=== PATIENT | male | born 1975 | race Caucasian/White ===

== ENCOUNTER 2017-02-05 15:34 | Emergency (ER) | payer BC, OTHER ==
[2017-02-05] MEDS ORDERED: Sodium Chloride 0.9% 10 ML Syringe FLUSH PRN (16:29)
[2017-02-05 17:15] LABS: CHLORIDE,CL 101 mmol/L (101-111); SODIUM,NA 138 mmol/L (135-145)
[2017-02-05] MEDS ORDERED: Vancomycin 1.5 GM in Sodium Chloride 0.9% 500 ML IV ONE (18:10)
[2017-02-05] MEDS ORDERED: Dexamethasone 4 MG/ML SDV IVPUSH ONE (18:11)
--- NOTE | 2017-02-05 19:04 | EDM.PDOC ---
Scribed by Juanita Felix 02/05/17 7202 for Elroy Mattson MD ED HPI GENERAL MEDICAL PROBLEM - General Chief Complaint: Upper Extremity Injury/Pain Stated Complaint: [id number] SWOLLEN ELBOW/ARM Time Seen by Provider: 02/05/17 16:29 Source of Information: Reports: Patient, RN, RN Notes Reviewed History Limitations: Reports: No Limitations - History of Present Illness INITIAL COMMENTS - FREE TEXT/NARRATIVE: Complaining of right elbow bursitis that developed over the last week while patient was on vacation riding with his right elbow on the console of his car. A few days ago it began to became red and painful. Denies fever or chills. History of septic bursitis of right elbow x2 in the past. Location: Reports: Upper Extremity, Right Quality: Reports: Ache Severity: Moderate Improves with: Reports: None Worsens with: Reports: None Associated Symptoms: Reports: No Other Symptoms Right Elbow Pain Score (Numeric/FACES): 7 - Related Data Allergies Allergy/AdvReac Type Severity Reaction Status Date / Time Penicillins Allergy Intermediate Rash Verified 02/05/17 16:12 Home Meds: Home Meds Cephalexin 250 mg PO QID 02/05/17 [History] Ibuprofen 1 tab PO ASDIRECTED PRN 02/05/17 [History] Past Medical History Musculoskeletal History: Reports: Other (See Below) (Septic bursitis of right elbow.) Review of Systems - Review of Systems Review Of Systems: ROS reveals no pertinent complaints other than HPI. ED EXAM, GENERAL - Physical Exam Exam: See Below Exam Limited By: No Limitations General Appearance: Alert, WD/WN, No Apparent Distress Head: Atraumatic, Normocephalic Respiratory/Chest: No Respiratory Distress, Lungs Clear, Normal Breath Sounds, No Accessory Muscle Use, Chest Non-Tender Cardiovascular: Normal Peripheral Pulses, Regular Rate, Rhythm, No Edema, No Gallop, No JVD, No Murmur, No Rub Back Exam: Normal Inspection, Full Range of Motion, NT Extremities: Other (Right elbow with acutely tender and swollen olecranon bursa with erythema and increased warmth. Full ROM, but tender.) Neurological: Alert, Oriented, CN II-XII Intact, Normal Cognition, Normal Gait, Normal Reflexes, No Motor/Sensory Deficits Psychiatric: Normal Affect, Normal Mood Lymphatic: No Adenopathy Course - Vital Signs Last Recorded V/S: Last Vital Signs Temp 38.0 C 02/05/17 15:52 Pulse 85 02/05/17 15:52 Resp 18 02/05/17 15:52 BP 99/67 02/05/17 15:52 Pulse Ox 96 02/05/17 15:52 - Orders/Labs/Meds Orders: Active Orders 24 hr Category Date Time Status Peripheral IV Care [RC] . DIRECTED Care 02/05/17 16:30 Active CULTURE BLOOD [BC] Stat Lab 02/05/17 16:45 Received CULTURE BLOOD [BC] Stat Lab 02/05/17 16:50 Received Sodium Chloride 0.9% [Saline Flush] Med 02/05/17 16:29 Active 10 ml FLUSH ASDIRECTED PRN Vancomycin 1.5 gm Med 02/05/17 18:10 Active Sodium Chloride 0.9% [Normal Saline] 500 ml IV ONETIME Blood Culture x2 Reflex Set [OM.PC] Stat Oth 02/05/17 16:29 Ordered Peripheral IV Insertion Adult [OM.PC] Stat Oth 02/05/17 16:29 Ordered Medication Orders Vancomycin HCl 1.5 gm/ Sodium (Chloride) 500 mls @ 334 mls/hr IV ONETIME ONE Stop: 02/05/17 19:39 Last Admin: 02/05/17 18:28 Dose: 334 mls/hr Sodium Chloride (Saline Flush) 10 ml FLUSH ASDIRECTED PRN PRN Reason: Keep Vein Open Last Admin: 02/05/17 17:47 Dose: 10 ml Labs: Laboratory Tests 02/05/17 02/05/17 02/05/17 Range/Units 16:45 16:45 16:45 WBC 11.2 H (5.0-10.0) 10^3/uL RBC 4.83 (4.6-6.2) 10^6/uL Hgb 14.7 (14.0-18.0) g/dL Hct 42.0 (40.0-54.0) % MCV 87.0 (80-100) fL MCH 30.4 (27.0-34.0) pg MCHC 35.0 (33.0-35.0) g/dL Plt Count 168 (150-450) 10^3/uL Neut % (Auto) 75.6 H (42.2-75.2) % Lymph % (Auto) 12.0 L (20.5-50.1) % [place] % (Auto) 11.2 H (2-8) % Eos % (Auto) 1.0 (1.0-3.0) % Baso % (Auto) 0.2 (0.0-1.0) % Sodium 138 (135-145) mmol/L Potassium 3.8 (3.6-5.0) mmol/L Chloride 101 (101-111) mmol/L Carbon Dioxide 27.0 (21.0-31.0) mmol/L Anion Gap 13.8 BUN 18 (7-18) mg/dL Creatinine 1.1 (0.6-1.3) mg/dL Est Cr Clr Drug Dosing 97.00 mL/min Estimated GFR (MDRD) > 60 Glucose 108 H (74-105) mg/dL Lactic Acid 0.9 (0.5-2.2) mmol/L Calcium 9.1 (8.4-10.2) mg/dl C-Reactive Protein (0.0-1.3) mg/dL /06/14 Range/Units 16:45 WBC (5.0-10.0) 10^3/uL RBC (4.6-6.2) 10^6/uL Hgb (14.0-18.0) g/dL Hct (40.0-54.0) % MCV (80-100) fL MCH (27.0-34.0) pg MCHC (33.0-35.0) g/dL Plt Count (150-450) 10^3/uL Neut % (Auto) (42.2-75.2) % Lymph % (Auto) (20.5-50.1) % [place] % (Auto) (2-8) % Eos % (Auto) (1.0-3.0) % Baso % (Auto) (0.0-1.0) % Sodium (135-145) mmol/L Potassium (3.6-5.0) mmol/L Chloride (101-111) mmol/L Carbon Dioxide (21.0-31.0) mmol/L Anion Gap BUN (7-18) mg/dL Creatinine (0.6-1.3) mg/dL Est Cr Clr Drug Dosing mL/min Estimated GFR (MDRD) Glucose (74-105) mg/dL Lactic Acid (0.5-2.2) mmol/L Calcium (8.4-10.2) mg/dl C-Reactive Protein 5.7 H (0.0-1.3) mg/dL Meds: Medications Generic Name Dose Route Start Last Admin Trade Name Freq PRN Reason Stop Dose Admin Vancomycin HCl 1.5 gm/ Sodium 500 mls @ 334 mls/hr 02/05/17 18:10 02/05/17 18 :28 Chloride IV 02/05/17 19:39 334 mls/hr ONETIME ONE Administration Sodium Chloride 10 ml 02/05/17 16:29 02/05/17 17:47 Saline Flush FLUSH 10 ml ASDIRECTED PRN Administration Keep Vein Open Discontinued Medications Generic Name Dose Route Start Last Admin Trade Name Freq PRN Reason Stop Dose Admin Dexamethasone 8 mg 02/05/17 18:11 02/05/17 18:26 Dexamethasone IVPUSH 02/05/17 18:12 8 mg ONETIME ONE Administration Departure - Departure Time of Disposition: 19:40 Disposition: Home, Self-Care 01 Condition: Good Clinical Impression: Septic olecranon bursitis of right elbow - Discharge Information Instructions: Bursitis, [id number], Cellulitis, Adult Forms: ED Department Discharge Additional Instructions: RX: Clindamycin 300mg. Continue Cephalexin as prescribed. Follow up with [facility] doctor if not improving by Saturday, February 11. Return to ER if worse at any time. I have read and agree with the documentation that has been completed regarding this visit. By signing this record, I attest that the documentation was completed in my physical presence and is an accurate record of the encounter.
[2017-02-05 20:08] VITALS: BP 116/64
== END 2017-02-05 20:10 | disposition home or self-care (01) ==
LOC: DL.ED 15:34
DX: M70.21 Olecranon bursitis, right elbow (principal); Z88.0 Allergy status to penicillin; Z79.899 Other long term (current) drug therapy
CPT/HCPCS: 36415; 80048; 83605; 85025; 86140; 87040; 96365; 96375; 99283; J1100; J3370; J7040; J7050